=== PATIENT | male | born 1935 | race Two or more races ===

== ENCOUNTER 2023-05-21 08:13 | Day surgery (SDC) | payer OTHER, MEDICAID ==
[2023-05-19 11:56] LABS: Basophils # (auto) 0.1 10 ^3/uL (0-0.2); Eosinophils # (auto) 0.5 10 ^3/uL (0-0.8); Eosinophils % (auto) 10.2 % (0.0-7.0); Hematocrit 37.9 % (41.0-53.0); Hemoglobin 12.1 g/dL (13.5-17.5); Lymphocytes # (auto) 0.5 10 ^3/uL (0.4-5.4); Lymphocytes % (auto) 10.8 % (10.0-50.0); Mean Corpuscular Hemoglobin 30.3 pg (28.0-32.0); Mean Corpuscular Volume 94.5 fL (80.0-100.0); Monocytes # (auto) 0.6 10 ^3/uL (0-1.3); Monocytes % (auto) 12.4 % (0.0-12.0); Neutrophils # (auto) 3.3 10 ^3/uL (1.6-8.6); Neutrophils % (auto) 65.6 % (37.0-80.0); Red Blood Cells 4.01 10^6/uL (4.5-5.90); Red Cell Distribution Width 16.1 % (11.8-14.3); White Blood Cell 5.1 10^3/uL (4.4-10.8)
[2023-05-19 12:13] LABS: INR 1.08 (0.9-1.15); Partial Thromboplastin Time 32.8 SEC (24.5-34.5); Prothrombin Time 11.3 sec (9.3-11.8)
[2023-05-19 12:15] LABS: Urine Bacteria NONE SEEN /hpf (None Seen); Urine Blood Negative /uL (Negative); Urine Clarity Clear (Clear); Urine Color Colorless (Yellow); Urine Protein, UAD Negative (Negative); Urine Specific Gravity 1.012 (1.001-1.035); Urine Urobilinogen Normal (Negative); Urine WBC 1 /hpf (0 - 3); Urine pH 5.5 (5.0-8.0)
[2023-05-19 12:17] LABS: Alanine Aminotransferase 14 U/L (7-40); Alkaline Phosphatase 83 U/L (46-116); Anion Gap 4 (5-15); BUN/Creatinine Ratio 17.6 (10.0-20.0); Blood Urea Nitrogen 19 mg/dL (9-23); Calcium 9.4 mg/dL (8.7-10.4); Carbon Dioxide 31 mmol/L (20-30); Chloride 105 mmol/L (98-107); Glucose 94 mg/dL (74-106); Potassium 4.8 mmol/L (3.5-5.1); Sodium 140 mmol/L (136-145)
[2023-05-19 12:18] LABS: Aspartate Aminotransferase 12 U/L (13-40); Bilirubin, Total 0.5 mg/dL (0.2-1.0); Total Protein 6.8 g/dL (5.7-8.2)
[~2023-05-21] VITALS: Ht 180.3 cm; Wt 106.6 kg
[~2023-05-21 08:13] MED LIST: ASCO500T11 PO; ASPI81CH59 PO; CARV3.1240 PO; CHOL100047 PO; CLOT1CRE56 TOP; COEN200C11 PO; FER325T PO; FLUT1AER6 IN; FURO40TA4 PO; IPRA0.00 IN; MILK500C2 PO; OMEGCAP28 OR; PANT40TA2 PO; POTA1TAB61 PO; PRAV20TA3 PO; RIV15T PO
[2023-05-21] MEDS ORDERED: PHENYLEPHRINE HCL 10 MG/ML VL IV ONE (08:14)
[2023-05-21] MEDS ORDERED: ONDANSETRON HCL 4 MG/2 ML VIAL ONE (11:07)
[2023-05-21] MEDS ORDERED: LIDOCAINE 2% (LOCAL ANESTH.) PF 5ml SDV ONE (11:07)
[2023-05-21] MEDS ORDERED: PROPOFOL 10 MG/ML 20 ML IV ONE (11:07)
[2023-05-21] MEDS ORDERED: GLYCOPYRROLATE 0.2 MG/ML 1ML VIAL ONE (11:07)
[2023-05-21] MEDS ORDERED: fentaNYL CITRATE 100 MCG/2 ML VL ONE (11:08)
[2023-05-21] MEDS ORDERED: CIPROFLOXACIN 400MG/200ML 200 ML IV ONE (11:09)
[2023-05-21 13:58] VITALS: PULSE 79; RESP 20; O2SAT 96
[2023-05-21 14:05] VITALS: TEMP 97.2
[2023-05-21 14:15] VITALS: PULSE 80
[2023-05-21 15:05] VITALS: BP 135/73; PULSE 80; RESP 16; O2SAT 97
== END 2023-05-21 15:30 | disposition home or self-care (01) ==
LOC: SUR 08:13
PROVIDERS: ATTEND Urology
DX: N32.9 Bladder disorder, unspecified (principal); I11.0 Hypertensive heart disease with heart failure; I50.9 Heart failure, unspecified; J44.9 Chronic obstructive pulmonary disease, unspecified; E11.9 Type 2 diabetes mellitus without complications; Z79.899 Other long term (current) drug therapy; Z79.84 Long term (current) use of oral hypoglycemic drugs; Z98.890 Other specified postprocedural states
CPT/HCPCS: 36415; 52240; 80053; 81001; 82962; 85025; 85610; 85730; 87086; J0744; J2001; J2370; J2405; J2704; J3010

== ENCOUNTER 2024-10-01 18:34 | Inpatient (IN) | payer OTHER, MEDICAID ==
[~2024-10-01] VITALS: Ht 180.3 cm; Wt 104.5 kg
[~2024-10-01 18:34] MED LIST changes: -COEN200C11 PO; +COEN200C25 PO; +POTA-215 PO; -POTA1TAB61 PO
--- NOTE | 2024-10-01 19:31 | ED.PDOC ---
GI ASSESSMENT HPI Comments 88-year-old male who came to emergency room via EMS due to abdominal pain. States with the past 3 days, he has been having constant abdominal pain associated with nausea. Patient states he has been constipated, but had his last bowel movement yesterday. He denies any abdominal surgeries, denies any vomiting. Chief Complaint: Abdominal Pain Time Seen by MD: 19:31 Reviewed Notes: Nurses Notes Allergies: Coded Allergies: NO KNOWN ALLERGIES (Unverified , 05/19/23) Home Meds Reported Medications Ipratropium-Albuterol (Ipratropium [place]/Albut) 1 Francisco Francisco, 1 FRANCISCO IN BID, ML 05/19/23 Clotrimazole (Lotrimin) 1 Applic Ap, 1 APPLIC TOP PRN, APPLIC 05/19/23 Fluticasone-Salmeterol (Wixela Inhub 250-50 Mcg/Dose) 1 Aer Aer, 1 AER IN DAILY, AER 05/19/23 Ascorbic Acid (VITAMIN C TABLET) 500 Mg Tb, 1000 MG PO DAILY, TAB 05/19/23 Coenzyme Q10 (Coq10) 200 Mg Cap, 200 MG PO DAILY, CAP 05/19/23 Silybum Marianum (Milk Thistle) 500 Mg Cap, 1000 MG PO BID, CAP 05/19/23 Cholecalciferol (D3) 1,000 Unit Cap, 1000 UNIT PO DAILY, CAP 05/19/23 Furosemide (Furosemide) 40 Mg Tab, 40 MG PO DAILY, TAB 05/19/23 Potassium Chloride (Klor-Con M10) 10 Meq Tab, 10 MEQ PO DAILY, TAB 05/19/23 Pravastatin Sodium (PRAVACHOL TABLET) 20 Mg Tb, 40 MG PO DAILY, TAB 05/19/23 Pantoprazole Sodium Sesquihydr (Protonix) 40 Mg Tab, 40 MG PO DAILY, #30 TAB 05/19/23 Carvedilol (Carvedilol) 3.125 Mg Tab, 3.125 MG PO BID, TAB 05/19/23 Ferrous Sulfate (FERROUS SULFATE) 325 Mg Tb, 325 MG PO DAILY, TAB 05/19/23 Rivaroxaban (Xarelto Tablet) 15 Mg Tb, 15 MG PO DAILY, TAB 05/19/23 Aspirin (Aspirin Low Dose) 81 Mg Chw, 81 MG PO DAILY, TAB.CHEW 05/19/23 [place] 3 Fatty Acids-[place] 6 Fa (OMEGA 3-6-9 COMPLEX) Complex Cap, 1 OR BID, CAP 05/19/23 Information Source: Patient Mode of Arrival: EMS Timing: Days Duration: Since onset Prehospital treatment: None Quality: Aching Vomitus: None Stool: Impaction Severity: Moderate Recent: None Recent Hx of: None Pain Location: Epigastric Associated sign and symptoms: Nausea, Abdominal Pain Past Medical History PAST MEDICAL HISTORY: Denies Surgical History: Denies all surgeries Family History Family History: Reviewed,noncontributory to illness Social History Smoker: Non-Smoker Alcohol: Denies ETOH Use Drugs: Denies Drug Use Lives In: Home Constitutional: denies: chills, diaphoresis, fatigue, fever, malaise, sweats, weakness, others EENTM: denies: blurred vision, double vision, ear bleeding, ear discharge, ear drainage, ear pain, ear ringing, eye pain, eye redness, hearing loss, mouth pain, mouth swelling, nasal discharge, nose bleeding, nose congestion, nose pain, photophobia, tearing, throat pain, throat swelling, voice changes, others Respiratory: denies: cough, hemoptysis, orthopnea, SOB at rest, shortness of breath, SOB with excertion, stridor, wheezing, others Cardiovascular: denies: chest pain, dizzy spells, diaphoresis, Dyspnea on exertion, edema, irregular heart beat, left arm pain, lightheadedness, palpitations, PND, syncope, others Gastrointestinal: reports: abdominal pain, nausea; denies: abdomen distended, blood streaked bowels, constipated, diarrhea, dysphagia, difficulty swallowing, hematemesis, melena, poor appetite, poor fluid intake, rectal bleeding, rectal pain, vomiting, others Genitourinary: denies: burning, dysuria, flank pain, frequency, hematuria, incontinence, penile discharge, penile sore, pain, testicle pain, testicle swelling, urgency, others Neurological: denies: dizziness, fainting, headache, left sided numbness, left sided weakness, numbness, paresthesia, pre-existing deficit, right sided numbness, right sided weakness, seizure, speech problems, tingling, tremors, weakness, others Musculoskeletal: denies: back pain, gout, joint pain, joint swelling, muscle pain, muscle stiffness, neck pain, others Integumetry: denies: bruises, change in color, change in hair/nails, dryness, laceration, lesions, lumps, rash, wounds, others Allergic/Immunocompromised: denies: Difficulty Healing, Frequent Infections, Hives, Itching, others Hematologic/Lymphatic: denies: anemia, blood clots, easy bleeding, easy bruising, swollen glands, others Endocrine: denies: excessive hunger, excessive sweating, excessive thirst, excessive urination, flushing, intolerance to cold, intolerance to heat, unexplained weight gain, unexplained weight loss, others Psychiatric: denies: anxiety, bipolar disorder, depression, hopeless, panic disorder, schizophrenia, sleepless, suicidal, others Physical Exam General Appearance: No Apparent Distress, Normal HEENT: Normal ENT Inspection, Pharynx Normal, TMs Normal Neck: Full Range of Motion, Non-Tender, Normal, Normal Inspection Respiratory: Chest Non-Tender, Lungs Clear, No Accessory Muscle Use, No Respiratory Distress, Normal Breath Sounds Cardiovascular: No Edema, No JVD, No Murmur, No Gallop, Normal Peripheral Pulses, Regular Rate/Rhythm Breast Exam: Deferred Gastrointestinal: Epigastric, No Organomegaly, No Pulsatile Mass, Normal Bowel Sounds, Soft, Tenderness Genitalia: Deferred Pelvic: Deferred Rectal: Deferred Extremities: No calf tenderness, Normal capillary refill, Normal inspection, Normal range of motion, Non-tender, No pedal edema Musculoskeletal : Apperance: Normal Neurologic: Alert, pr manager II-XII nml as Tested, No Motor Deficits, Normal Affect, Normal Mood, No Sensory Deficits Cerebellar Function: Normal Reflexes: Normal Skin: Dry, Normal Color, Warm Lymphatic: No Adenopathy Was a procedure done? Was a procedure done?: No GI differential Dx Differential Diagnosis: Constipation, Diverticular disease, Gastritis/PUD, Gastroenteritis, Hepatitis, Pancreatitis, UTI, Urolithiasis X-Ray, Labs, Meds, VS Vital Signs Date Time Temp Pulse Resp B/P (MAP) Pulse Ox O2 Delivery O2 Flow Rate FiO2 10/01/24 21:41 62 16 98/50 (66) 95 10/01/24 21:40 62 16 98/50 10/01/24 21:02 64 16 109/53 10/01/24 20:59 64 16 96 Room Air* 0 21 10/01/24 20:59 64 16 109/53 (71) 96 10/01/24 18:41 97.7 94 20 162/110 (127) 94 Lab Test 10/01/24 19:04 Range/Units White Blood Count 7.7 4.4-10.8 10^3/uL Red Blood Count 4.37 L 4.5-5.90 10^6/uL Hemoglobin 14.4 13.5-17.5 g/dL Hematocrit 43.9 41.0-53.0 % Mean Corpuscular Volume 100.5 H 80.0-100.0 fL Mean Corpuscular Hemoglobin 33.0 H 28.0-32.0 pg Mean Corpuscular Hemoglobin Concent 32.9 32.0-36.0 g/dL Red Cell Distribution Width 14.7 H 11.8-14.3 % Platelet Count 223 140-450 10^3/uL Mean Platelet Volume 8.1 6.9-10.8 fL Neutrophils (%) (Auto) 90.1 H 37.0-80.0 % Lymphocytes (%) (Auto) 4.2 L 10.0-50.0 % Monocytes (%) (Auto) 3.6 0.0-12.0 % Eosinophils (%) (Auto) 1.6 0.0-7.0 % Basophils (%) (Auto) 0.5 0.0-2.0 % Neutrophils # (Auto) 7.0 1.6-8.6 10 ^3/uL Lymphocytes # (Auto) 0.3 L 0.4-5.4 10 ^3/uL Monocytes # (Auto) 0.3 0-1.3 10 ^3/uL Eosinophils # (Auto) 0.1 0-0.8 10 ^3/uL Basophils # (Auto) 0 0-0.2 10 ^3/uL Nucleated Red Blood Cells 0.0 % Sodium Level 137 136-145 mmol/L Potassium Level 5.1 3.5-5.1 mmol/L Chloride Level 102 98-107 mmol/L Carbon Dioxide Level 27 20-31 mmol/L Anion Gap 8 5-15 Blood Urea Nitrogen 25 H 9-23 mg/dL Creatinine 1.30 0.700-1.30 mg/dL Glomerular Filtration Rate Calc 54 >90 mL/min BUN/Creatinine Ratio 19.2 10.0-20.0 Serum Glucose 138 H 74-106 mg/dL Lactic Acid Level 1.0 0.4-2.0 mmol/L Calcium Level 9.4 8.7-10.4 mg/dL Total Bilirubin 1.1 H 0.2-1.0 mg/dL Aspartate Amino Transferase (AST) 143 H 13-40 U/L Alanine Aminotransferase (ALT) 98 H 7-40 U/L Alkaline Phosphatase 104 46-116 U/L Total Protein 6.9 5.7-8.2 g/dL Albumin 4.1 3.2-4.8 g/dL Lipase 492 H 12-53 U/L Current Medications Medications (Trade) Dose Ordered Sig/Ellie Route Start Time Stop Time Status Last Admin Morphine Sulfate 4 mg ONCE ONCE IV 10/01/24 20:30 10/01/24 20:31 DC 10/01/24 21:02 Ondansetron HCl (Zofran) 4 mg ONCE ONCE IV 10/01/24 20:30 10/01/24 20:31 DC 10/01/24 21:01 Time of 1ST Reevaluation: 19:29 Reevaluation 1ST: Unchanged Patient Education/Counseling: Diagnosis, Treatment Family Education/Counseling: No Family Present Departure 1 Departure Time of Disposition: 22:21 (Patient presented with abdominal pain that was concerning for possible appendicits, gastritis, cholecystitis, colitis, gastroenteritis, sbo, or orther possible surgical emergency. Data: 1. I ordered and reviewed the result of at least 3 labs including a CBC, BMP, and Urinalysis. 2. I independently interpreted the following tests: CT Abdoment and Pelvis is concerning for acute cholecystitis .Risk:This patient has a high risk of morbidity due to further diagnostic testing or treatment and may suffer from an acute abdominal process disorder. Workup reveals dilated CBD and elevated lipase gallstone pancreatitis and patient should be admitted for further workup. and possible expert consultation. ) Impression: Primary Impression: Acute pancreatitis Qualified Codes: K85.90 - Acute pancreatitis without necrosis or infection, unspecified Additional Impression: Cholelithiasis Qualified Codes: K80.21 - Calculus of gallbladder without cholecystitis with obstruction Disposition: ADMITTED INPATIENT Admit to: Med Surg Condition: Guarded Critical Care Note Critical Care Time?: Yes Critical care comment: Intractable abdominal pain Authorized and Performed by: Cristhian Gamboa MD Total critical care time: Approximately 39 minutes Due to a high probability of clinically significant, life threatening deterioration, the patient required my highest level of preparedness to intervene emergently and I personally spent this critical care time directly and personally managing the patient. This critical care time included obtaining a history; examining the patient; pulse oximetry; ordering and review of studies; arranging urgent treatment with development of a management plan; evaluation of patient's response to treatment; frequent reassessment; and, discussions with other providers. This critical care time was performed to assess and manage the high probability of imminent, life-threatening deterioration that could result in multi-organ failure. It was exclusive of separately billable procedures and treating other patients and teaching time. Please see my other sections and the rest of the note for further information on patient assessment and treatment. Stability Stability form required: No Heart Score Heart Score: Heart Score Response (Comments) Value History N/A 0 EKG N/A 0 Age N/A 0 Risk Factors N/A 0 Troponin N/A 0 Total 0 I personally scribed for CRISTHIAN GAMBOA MD ([facility]) on 10/01/24 at 19:31. Electronically submitted by Norberto Simmons ([facility]). CRISTHIAN GAMBOA MD Oct 01, 2024 19:31
[2024-10-01 19:34] LABS: Basophils # (auto) 0 10 ^3/uL (0-0.2); Basophils % (auto) 0.5 % (0.0-2.0); Eosinophils # (auto) 0.1 10 ^3/uL (0-0.8); Eosinophils % (auto) 1.6 % (0.0-7.0); Hematocrit 43.9 % (41.0-53.0); Hemoglobin 14.4 g/dL (13.5-17.5); Lymphocytes # (auto) 0.3 10 ^3/uL (0.4-5.4); Lymphocytes % (auto) 4.2 % (10.0-50.0); Mean Corpuscular Hgb Conc. 32.9 g/dL (32.0-36.0); Mean Corpuscular Volume 100.5 fL (80.0-100.0); Monocytes # (auto) 0.3 10 ^3/uL (0-1.3); Monocytes % (auto) 3.6 % (0.0-12.0); Neutrophils % (auto) 90.1 % (37.0-80.0); Platelet Count (auto) 223 10^3/uL (140-450); Red Blood Cells 4.37 10^6/uL (4.5-5.90); Red Cell Distribution Width 14.7 % (11.8-14.3); White Blood Cell 7.7 10^3/uL (4.4-10.8)
[2024-10-01 19:48] LABS: Albumin 4.1 g/dL (3.2-4.8); Alkaline Phosphatase 104 U/L (46-116); Anion Gap 8 (5-15); BUN/Creatinine Ratio 19.2 (10.0-20.0); Calcium 9.4 mg/dL (8.7-10.4); Carbon Dioxide 27 mmol/L (20-31); Chloride 102 mmol/L (98-107); Potassium 5.1 mmol/L (3.5-5.1); Sodium 137 mmol/L (136-145); Total Protein 6.9 g/dL (5.7-8.2)
[2024-10-01 19:49] LABS: Alanine Aminotransferase 98 U/L (7-40); Aspartate Aminotransferase 143 U/L (13-40); Bilirubin, Total 1.1 mg/dL (0.2-1.0); Blood Urea Nitrogen 25 mg/dL (9-23); Glucose 138 mg/dL (74-106)
--- NOTE | 2024-10-01 20:33 | DVH ---
EXAM: XY CHEST PORTABLE TECHNIQUE: Single frontal chest radiograph CLINICAL HISTORY: abdominal pain COMPARISON: None Findings/Impression: Frontal chest radiograph demonstrates no acute osseous or superficial soft tissue abnormalities. Left chest wall dual-chamber pacemaker. The trachea is midline. Cardiomegaly. No pneumothorax, pleural effusions, or consolidations.
[2024-10-01] MEDS: IOHEXOL 300 MG/ML 100ML BOTTLE IJ ONE (20:57)
[2024-10-01 20:59] VITALS: PULSE 64; RESP 16; O2SAT 96
--- NOTE | 2024-10-01 21:00 | DVH ---
Exam: CT CT AB PEL WITH IV CON ONLY History: abdomninal pain Comparison Study: None TECHNIQUE: A digital firebrick and refractory tile repairer image was obtained. During the uneventful, intravenous administration of c ontrast material, multislice data acquisition was obtained through the abdomen and pelvis. The data s et was subsequently reconstructed into axial images. Images reviewed on a wrist examination is an exa mination of axial and multiplanar reformations using a variety of window levels and settings. RADIATION DOSE: DLP 1328.83 mGy.cm; CTDI vol 20.74 mGy. Findings: Lungs: The lung bases are clear. Heart: No cardiomegaly or pericardial effusion. Liver: Mild intrahepatic biliary ductal dilatation. Gallbladder: Cholelithiasis with a distended gallbladder. Dilated common bile duct measuring 1.6 cm a t the pancreatic head. Spleen: Unremarkable Pancreas: Unremarkable Adrenals: Unremarkable Kidneys: Unremarkable GI tract: Moderate hiatal hernia. Diverticulosis without evidence of acute diverticulitis. : Unremarkable. Vasculature: Moderate aortoiliac atherosclerosis. Lymphadenopathy: Absent Peritoneum: No ascites Musculoskeletal: Unremarkable Soft tissues: Unremarkable Impression: 1. No acute abdominopelvic abnormalities. 2. Cholelithiasis with a distended gallbladder and dilated common bile duct. Correlate with an ultras ound or nuclear medicine hepatobiliary scan to further evaluate for acute cholecystitis. 3. Mild intrahepatic biliary ductal dilatation 4. Diverticulosis without evidence of acute diverticulitis.
[2024-10-01] MEDS: ONDANSETRON HCL 4 MG/2 ML VIAL IV ONE (21:01)
[2024-10-01] MEDS: MORPHINE SULFATE 4 MG/ML SYR/VIAL IV ONE (21:02)
[2024-10-01] MEDS: metroNIDAZOLE 500MG/100ML 100 ML IV ONE (23:19)
[2024-10-02 00:08] VITALS: PULSE 60; RESP 14; O2SAT 97
[2024-10-02] MEDS: ceFAZolin 2 GM/D5W50ml 50 ML IV ONE (00:19)
[2024-10-02] MEDS ORDERED: HYDROcodone-ACET 5/325MG TAB PO PRN (00:45)
[2024-10-02] MEDS ORDERED: DOCUSATE SOD 100 MG CAP PO PRN (00:45)
[2024-10-02] MEDS ORDERED: ONDANSETRON HCL 4 MG/2 ML VIAL IV PRN (00:45)
[2024-10-02] MEDS ORDERED: MORPHINE SULFATE INJ 2 MG/ml SYRG IV PRN ×2 (00:45→02:30)
[2024-10-02] MEDS ORDERED: ACETAMINOPHEN 325 MG TAB PO PRN (00:45)
[2024-10-02] MEDS: PANTOPRAZOLE 40 MG/10 ML VIAL INJ IV ONE (01:06)
[2024-10-02] MEDS: SODIUM CHLORIDE 0.9% 1,000 ML IV SCH (01:07)
--- NOTE | 2024-10-02 02:21 | DVHHP2 ---
History of Present Illness Reason for Visit: Acute pancreatitis History of Present Illness The patient is 88-year-old male with past medical history of AFib, CHF, DM, hyperlipidemia, liver cirrhosis, and anemia who presented to [facility] ED with complaint of abdominal pain. Patient reports symptoms has been ongoing for the past 3 days, constant abdominal pain, associated nausea, constipated, getting worse that prompted this visit. Patient was seen and evaluated in the ED, laboratory data shows WBC 7.7, platelets 223, sodium 137, potassium 5.1, BUN 25, creatinine 1.30, GFR 54, glucose 138, AST 143, ALT 98, lipase 492. Chest x-ray revealing left chest wall dual-chamber pacemaker, c ardiomegaly. Abdomen/pelvis CT revealing cholelithiasis with a distended gallbladder and dilated common bile ducts, correlate with an ultrasound or nuclear medicine hepatobiliary scan to further evaluate for acute cholecystitis, mild intrahepatic biliary ductal dilatation, diverticulosis without evidence of acute diverticulitis. Patient was started on IV antibiotic regimen Flagyl, please see medication orders section in the computer. On my assessment, patient denied chest pain, no headache, no dizziness, no shortness of breaths, no nausea, no vomiting, no fever, no chills. Patient was admitted for further evaluation and medical management. Past Medical History AFib, DM, hyperlipidemia, CHF, liver cirrhosis, anemia. Past Surgical History Pacemaker Family History Reviewed, noncontributory to the management of this case. Past Social History The patient lives at home, denies smoking, alcohol or illicit drugs abuse. Review of Systems Constitutional: Yes: Weakness; No: Fever, Chills, Sweats, Malaise, Other Eyes: No: Pain, Vision change, Conjunctivae inflammation, Eyelid inflammation, Other, Redness ENT: No: Ear pain, Ear discharge, Nose pain, Nose discharge, Nose congestion, Mouth pain, Mouth swelling, Throat pain, Throat swelling, Other Respiratory: No: Cough, Dry, Shortness of breath, SOB with excertion, Wheezing, Hemoptysis, Pleuritic Pain, Sputum, Wheezing, Other Cardiovascular: No: Chest Pain, Palpitations, Orthopnea, Paroxysmal Noc. Dyspnea, Edema, Lt Headedness, Other Gastrointestinal: Nausea, Abdominal Pain; No: Vomiting, Diarrhea, Constipation, Melena, Hematochezia, Other Genitourinary: No Dysuria, No Frequency, No Incontinence, No Hematuria, No Retention, No Other Musculoskeletal: No: other, neck pain, shoulder pain, arm pain, back pain, hand pain, leg pain, foot pain Skin: No: Rash, Lesions, Jaundice, Bruising, Other Neurological: No: Weakness, Numbness, Incoordination, Change in speech, Confusion, Seizures, Other Allergies: Coded Allergies: NO KNOWN ALLERGIES (Unverified , 05/19/23) Medications Current Medications Medications Dose Ordered Sig/Ellie Route Start Time Stop Time Status Last Admin Dose Admin Metronidazole 100 ml @ 100 mls/hr Q8HR IV 10/02/24 06:00 Pantoprazole Sodium 40 mg DAILY IV 10/02/24 10:00 Sodium Chloride 1,000 ml @ 60 mls/hr [id number] IV 10/02/24 00:45 10/02/24 01:07 60 MLS/HR Acetaminophen/ Hydrocodone Bitart 1 tab Q4HP PRN PO 10/02/24 00:45 Ondansetron HCl 4 mg Q4HP PRN IV 10/02/24 00:45 Docusate Sodium 100 mg BIDPRN PRN PO 10/02/24 00:45 Acetaminophen 650 mg Q6HP PRN PO 10/02/24 00:45 Morphine Sulfate 2 mg Q4HPRN PRN IV 10/02/24 00:45 Exam Vital Signs Vital Signs Date Time Temp Pulse Resp B/P (MAP) Pulse Ox O2 Delivery O2 Flow Rate FiO2 10/02/24 00:08 60 14 97 Room Air* 0 21 10/02/24 00:07 98.2 117/48 (71) 98.2 General Appearance: Alert, Oriented X3, Cooperative, No acute distress HEENT: Atraumatic, PERRLA, EOMI, Mucous membr. moist/pink Respiratory: Clear to auscultation, Normal air movement Cardiovascular: Regular rate, Normal S1, Normal S2, No murmurs Abdominal: Normal bowel sounds, Soft, No hepatospenomegaly, No masses, Other (Reports tenderness) Extremities: No clubbing, No cyanosis, No edema, Normal pulses, No tenderness/swelling Skin: No rashes, No breakdown, No significant lesion Neuro: Normal speech, Normal tone, Sensation intact, Cranial nerves 3-12 NL, Reflexes 2+, Other (Generalized weakness) Psych/Mental Status: Mental status NL, Mood NL Labs/Xrays Labs Test 10/01/24 19:04 Range/Units White Blood Count 7.7 4.4-10.8 10^3/uL Red Blood Count 4.37 L 4.5-5.90 10^6/uL Hemoglobin 14.4 13.5-17.5 g/dL Hematocrit 43.9 41.0-53.0 % Mean Corpuscular Volume 100.5 H 80.0-100.0 fL Mean Corpuscular Hemoglobin 33.0 H 28.0-32.0 pg Mean Corpuscular Hemoglobin Concent 32.9 32.0-36.0 g/dL Red Cell Distribution Width 14.7 H 11.8-14.3 % Platelet Count 223 140-450 10^3/uL Mean Platelet Volume 8.1 6.9-10.8 fL Neutrophils (%) (Auto) 90.1 H 37.0-80.0 % Lymphocytes (%) (Auto) 4.2 L 10.0-50.0 % Monocytes (%) (Auto) 3.6 0.0-12.0 % Eosinophils (%) (Auto) 1.6 0.0-7.0 % Basophils (%) (Auto) 0.5 0.0-2.0 % Neutrophils # (Auto) 7.0 1.6-8.6 10 ^3/uL Lymphocytes # (Auto) 0.3 L 0.4-5.4 10 ^3/uL Monocytes # (Auto) 0.3 0-1.3 10 ^3/uL Eosinophils # (Auto) 0.1 0-0.8 10 ^3/uL Basophils # (Auto) 0 0-0.2 10 ^3/uL Nucleated Red Blood Cells 0.0 % Sodium Level 137 136-145 mmol/L Potassium Level 5.1 3.5-5.1 mmol/L Chloride Level 102 98-107 mmol/L Carbon Dioxide Level 27 20-31 mmol/L Anion Gap 8 5-15 Blood Urea Nitrogen 25 H 9-23 mg/dL Creatinine 1.30 0.700-1.30 mg/dL Glomerular Filtration Rate Calc 54 >90 mL/min BUN/Creatinine Ratio 19.2 10.0-20.0 Serum Glucose 138 H 74-106 mg/dL Lactic Acid Level 1.0 0.4-2.0 mmol/L Calcium Level 9.4 8.7-10.4 mg/dL Total Bilirubin 1.1 H 0.2-1.0 mg/dL Aspartate Amino Transferase (AST) 143 H 13-40 U/L Alanine Aminotransferase (ALT) 98 H 7-40 U/L Alkaline Phosphatase 104 46-116 U/L Total Protein 6.9 5.7-8.2 g/dL Albumin 4.1 3.2-4.8 g/dL Lipase 492 H 12-53 U/L PATIENT: DIXIE CARRIZALES ACCT: [id number] UNIT: [id number] : 1935 LOC: ER ROOM / BED: / AGE / SEX: 88 / M ADM STATUS: REG ER SERVICE 46 ORDERING PHYSICIAN: CRISTHIAN CEJA MD PROCEDURE(s): ABPLIV - CT AB PEL WITH IV CON ONLY REASON: abdomninal pain ORDER NUMBER(s): [id number], ACCESSION NUMBER(s): [id number] Exam: CT CT AB PEL WITH IV CON ONLY History: abdomninal pain Comparison Study: None TECHNIQUE: A digital quality project manager image was obtained. During the uneventful, intravenous administration of contrast material, multislice data acquisition was obtained through the abdomen and pelvis. The data set was subsequently reconstructed into axial images. Images reviewed on a wrist examination is an examination of axial and multiplanar reformations using a variety of window levels and settings. RADIATION DOSE: DLP 1328.83 mGy.cm; CTDI vol 20.74 mGy. Findings: Lungs: The lung bases are clear. Heart: No cardiomegaly or pericardial effusion. Liver: Mild intrahepatic biliary ductal dilatation. Gallbladder: Cholelithiasis with a distended gallbladder. Dilated common bile duct measuring 1.6 cm at the pancreatic head. Spleen: Unremarkable Pancreas: Unremarkable Adrenals: Unremarkable Kidneys: Unremarkable GI tract: Moderate hiatal hernia. Diverticulosis without evidence of acute diverticulitis. : Unremarkable. Vasculature: Moderate aortoiliac atherosclerosis. Lymphadenopathy: Absent Peritoneum: No ascites Musculoskeletal: Unremarkable Soft tissues: Unremarkable Impression: 1. No acute abdominopelvic abnormalities. 2. Cholelithiasis with a distended gallbladder and dilated common bile duct. Correlate with an ultrasound or nuclear medicine hepatobiliary scan to further evaluate for acute cholecystitis. 3. Mild intrahepatic biliary ductal dilatation 4. Diverticulosis without evidence of acute diverticulitis. ORDERING PHYSICIAN: CRISTHIAN CEJA MD PROCEDURE(s): CXRP - CHEST PORTABLE REASON: abdominal pain ORDER NUMBER(s): [id number], ACCESSION NUMBER(s): [id number] EXAM: XY CHEST PORTABLE TECHNIQUE: Single frontal chest radiograph CLINICAL HISTORY: abdominal pain COMPARISON: None Findings/Impression: Frontal chest radiograph demonstrates no acute osseous or superficial soft tissue abnormalities. Left chest wall dual-chamber pacemaker. The trachea is midline. Cardiomegaly. No pneumothorax, pleural effusions, or consolidations. Assessment/Plan Assessment/Plan Acute pancreatitis Elevated liver enzymes Acute pancreatitis without necrosis or infection, unspecified Cholelithiasis Acute abdominal pain Calculus of gallbladder without cholecystitis with obstruction Plan 1. Admit to Med-Surg unit 2. Breathing treatment 3. Pain control management 4. IV antibiotic management 5. Management of fluids and electrolytes 6. Consultation for hospitalist 7. Diagnostic test abdomen/pelvis CT 8. DVT prophylaxis on SCDs 9. Repeat labs CBC, CMP in a.m. 10. Continue with current medical management 11. Treatment plan discussed with patient and RN. Patient verbalized understanding. Plan discussed with: Patient, Other (RN) My Orders Orders - TOMAS MARTE DNP Procedure Category Date Status Time Complete Blood Count LAB 10/02/24 Logged 04:00 Comprehensive LAB 10/02/24 Logged Metabolic Panel 04:00 Metronidazole PHA 10/02/24 In Process 500mg/100ml (Flagyl 06:00 Pantoprazole PHA 10/02/24 In Process (Protonix) 10:00 * Gi Dvh Watch Commander CONS 10/02/24 Transmitted 00:41 Allergies LYNDSAY 10/02/24 In Process 00:41 Code Status CODE 10/02/24 Transmitted 00:41 Sodium Chloride 0.9% PHA 10/02/24 In Process 00:45 Oxygen Per Hour RT 10/02/24 Transmitted 00:41 Hydrocodone-Acet PHA 10/02/24 In Process 5/325mg Tab ([place] 00:45 Ondansetron Hcl PHA 10/02/24 In Process (Zofran) 00:45 Docusate Sodium PHA 10/02/24 In Process Capsule (Colace 00:45 Fall Risk Precautions LYNDSAY 10/02/[address] 00:41 Complete Blood Count LAB 10/03/24 Verified 04:00 Comprehensive LAB 10/03/24 Verified Metabolic Panel 04:00 Condition: Serious LYNDSAY 10/02/24 In Process 00:41 Acetaminophen Tablet PHA 10/02/24 In Process (Tylenol Tablet) 00:45 Clear Liq Diet DIET 10/02/24 Transmitted Breakfast Bedrest With Bathroom LYNDSAY 10/02/24 In Process Privileg 00:41 Morphine Sulfate PHA 10/02/24 In Process Injection 00:45 Sequential LYNDSAY 10/02/24 In Process Compression Device Admit ADMIT 10/02/24 Verified 02:20 Nitroglycerin [facility] 10/02/24 Verified Sublingual (Ntrostat 02:30 Morphine Sulfate PHA 10/02/24 Verified Injection 02:30 Notify Md Of Changes [facility] 10/02/24 Verified From Base 02:20 Ornamental Bronze Worker For [facility] 10/02/24 Verified 24 Hours 02:20 Emergency Dysrhythmia [facility] 10/02/24 Verified Protocol 02:20 Oxygen By Nasal RT 10/02/24 Verified Cannula 02:20 Problem List: (1) Acute pancreatitis (2) Elevated liver enzymes (3) Calculus of gallbladder without cholecystitis with obstruction (4) Cholelithiasis (5) Acute abdominal pain (6) Acute pancreatitis without necrosis or infection, unspecified Date of Service: Oct 02, 2024 Billing Provider: TOMAS MARTE DNP Common Visit Codes: [id number]-[id number] INP/OBS CARE (HIGH) TOMAS MARTE DNP Oct 02, 2024 02:21
[2024-10-02] MEDS ORDERED: NITROGLYCERIN 0.4 MG SL TAB SL PRN (02:30)
[2024-10-02] MEDS ORDERED: DEXTROSE (50%) 50ML SYRG IV PRN (03:30)
[2024-10-02] MEDS ORDERED: IPRATROPIUM BROM 0.5 MG/2.5ML INH SOL NEB PRN (03:30)
[2024-10-02 03:37] VITALS: BP 104/50; PULSE 60; RESP 18; TEMP 98.1; O2SAT 97
[2024-10-02 05:53] LABS: Basophils # (auto) 0.1 10 ^3/uL (0-0.2); Basophils % (auto) 0.4 % (0.0-2.0); Eosinophils # (auto) 0 10 ^3/uL (0-0.8); Eosinophils % (auto) 0.1 % (0.0-7.0); Hematocrit 42.7 % (41.0-53.0); Hemoglobin 13.8 g/dL (13.5-17.5); Lymphocytes # (auto) 0.2 10 ^3/uL (0.4-5.4); Mean Corpuscular Hemoglobin 32.6 pg (28.0-32.0); Mean Corpuscular Hgb Conc. 32.3 g/dL (32.0-36.0); Mean Corpuscular Volume 100.9 fL (80.0-100.0); Monocytes # (auto) 1.1 10 ^3/uL (0-1.3); Monocytes % (auto) 6.7 % (0.0-12.0); Neutrophils # (auto) 14.8 10 ^3/uL (1.6-8.6); Neutrophils % (auto) 91.8 % (37.0-80.0); Platelet Count (auto) 214 10^3/uL (140-450); Red Blood Cells 4.23 10^6/uL (4.5-5.90); Red Cell Distribution Width 14.8 % (11.8-14.3); White Blood Cell 16.1 10^3/uL (4.4-10.8)
[2024-10-02] MEDS: metroNIDAZOLE 500MG/100ML 100 ML IV SCH (06:15)
[2024-10-02 06:18] LABS: Albumin 3.7 g/dL (3.2-4.8); Anion Gap 7 (5-15); Calcium 9.1 mg/dL (8.7-10.4); Carbon Dioxide 29 mmol/L (20-31); Chloride 103 mmol/L (98-107); Potassium 5.1 mmol/L (3.5-5.1); Sodium 139 mmol/L (136-145); Total Protein 6.2 g/dL (5.7-8.2)
[2024-10-02 06:20] LABS: Alanine Aminotransferase 301 U/L (7-40); Alkaline Phosphatase 118 U/L (46-116); Aspartate Aminotransferase 428 U/L (13-40); Bilirubin, Total 2.3 mg/dL (0.2-1.0); Blood Urea Nitrogen 27 mg/dL (9-23); Glucose 124 mg/dL (74-106)
[2024-10-02 06:26] LABS: Urine Bacteria FEW /hpf (None Seen); Urine Blood Negative /uL (Negative); Urine Clarity Clear (Clear); Urine Color Yellow (Yellow); Urine Hyaline Cast MOD /lpf (0 - 2); Urine Protein, UAD TRACE (Negative); Urine Specific Gravity > 1.035 (1.001-1.035); Urine Squamous Epithelial Cell FEW /hpf (<5); Urine Urobilinogen 2 mg/dL (Negative); Urine WBC 1 /HPF (0-3)
[2024-10-02] MEDS: ACCU-CHEK COMFORT CURVE STRIP VI SCH (06:45)
[2024-10-02] MEDS: InsuLIN REG 1unit/0.01ml Soln (100units/ml) SC SCH (06:45)
--- NOTE | 2024-10-02 08:09 | DVH ---
EXAM: US GALLBLADDER HISTORY: cholecystitis COMPARISON: CT scan of the abdomen and pelvis dated 10/01/2024. TECHNIQUE: Right upper quadrant ultrasound was performed. FINDINGS: Gallstones are identified in the dependent portion of the gallbladder, without gallbladder wall thick ening or pericholecystic free fluid. The gallbladder is distended up to 12 cm length x 4 cm width. Th e patient was not tender to transducer pressure over the gallbladder. No intrahepatic biliary ductal dilatation or liver mass. The liver measures 16.9 cm longitudinal and is difficult to penetrate sono graphically. There is hepatopetal portal venous color Doppler flow. The common duct measures 13 mm d iameter. The pancreas,IVC, and abdominal aorta were not well visualized sonographically. The righ t kidney measures 10.3 cm in length and is normal in appearance. IMPRESSION: 1. Possible hepatic steatosis. 2. Cholelithiasis with gallbladder hydrops which may indicate acute cholecystitis. 3. Ectasia of the common bile duct measuring 13 mm, without sonographic evidence of choledocholithias is.
[2024-10-02 09:07] LABS: INR 0.97 (0.9-1.15); Partial Thromboplastin Time 27.1 SEC (24.5-34.5); Prothrombin Time 10.3 sec (9.3-11.8)
[2024-10-02 09:30] VITALS: PULSE 60; RESP 12; O2SAT 95
[2024-10-02] MEDS ORDERED: PANTOPRAZOLE 40 MG/10 ML VIAL INJ IV SCH (10:00)
[2024-10-02] MEDS: SPIRONOLACTONE 25 MG TAB PO SCH (10:00)
[2024-10-02] MEDS: CARVEDILOL 3.125 MG TAB PO SCH (10:00)
[2024-10-02 10:08] VITALS: O2SAT 96
--- NOTE | 2024-10-02 11:09 | DVHPNRES ---
Progress Note Objective vital signs Vital Sign Date Time Temp Pulse Resp B/P (MAP) Pulse Ox O2 Delivery O2 Flow Rate FiO2 10/02/24 10:08 96 Room Air 0.0 10/02/24 10:08 21 10/02/24 10:00 61 16 82/46 (58) 10/02/24 07:53 97.9 97.9 Total Intake and Output 10/01/24 10/01/24 10/02/24 15:00 23:00 07:00 Intake Total 550 ml Balance 550 ml medications Current Medications Medications Dose Ordered Sig/Ellie Route Start Time Stop Time Status Last Admin Dose Admin Acetaminophen/ Hydrocodone Bitart 1 tab Q4HP PRN PO 10/02/24 00:45 Ondansetron HCl 4 mg Q4HP PRN IV 10/02/24 00:45 Docusate Sodium 100 mg BIDPRN PRN PO 10/02/24 00:45 Acetaminophen 650 mg Q6HP PRN PO 10/02/24 00:45 Morphine Sulfate 2 mg Q4HPRN PRN IV 10/02/24 00:45 Nitroglycerin 0.4 mg Q5MINP PRN SL 10/02/24 02:30 Morphine Sulfate 2 mg Q30M PRN IV 10/02/24 02:30 Carvedilol 3.125 mg Q12HR PO 10/02/24 10:00 Aspirin 81 mg DAILY PO 10/02/24 10:00 Atorvastatin Calcium 10 mg HS PO 10/02/24 22:00 Pantoprazole Sodium 40 mg DAILY IV 10/02/24 10:00 Ipratropium [place] 0.5 mg Q4HPRN PRN NEB 10/02/24 03:30 Spironolactone 25 mg DAILY PO 10/02/24 10:00 Rivaroxaban 20 mg QPM PO 10/02/24 18:00 Diagnostic Test (Pha) 1 strip ACHS 10/02/24 07:00 10/02/24 06:45 1 STRIP Insulin Human Regular ACHS SC 10/02/24 07:00 Dextrose 50 ml UD PRN IV 10/02/24 03:30 Piperacillin Sod/ Tazobactam Sod 100 ml @ 25 mls/hr Q8HR IV 10/02/24 14:00 laboratory and microbiology Laboratory Tests 10/02/24 05:19 Test 10/02/24 05:19 Range/Units Serum Glucose 124 H 74-106 mg/dL Microbiology Date/Time Source Procedure Growth Status 10/01/24 19:04 Blood Blood Culture - Preliminary Resulted My Orders My Orders Orders - ROB CHRISTOPHER Procedure Category Date Status Time Vitamin B12 LAB 10/02/24 In Process 08:20 Vitamin D, 25-Hydroxy LAB 10/02/24 In Process 08:20 Nm Hida Scan NM 10/02/24 Logged 08:20 Sodium Chloride 0.9% PHA 10/02/24 Logged 11:15 ROB CHRISTOPHER Oct 02, 2024 11:09
[2024-10-02] MEDS: SODIUM CHLORIDE 0.9% 250 ML IV ONE (11:30)
--- NOTE | 2024-10-02 12:05 | DVHINCON2 ---
Date of service: Oct 02, 2024 Allergies: Coded Allergies: NO KNOWN ALLERGIES (Unverified , 05/19/23) Home Meds Reported Medications Ipratropium-Albuterol (Ipratropium [place]/Albut) 1 Francisco Francisco, 1 FRANCISCO IN BID, ML 05/19/23 Clotrimazole (Lotrimin) 1 Applic Ap, 1 APPLIC TOP PRN, APPLIC 05/19/23 Fluticasone-Salmeterol ([place]ela Inhub 250-50 Mcg/Dose) 1 Aer Aer, 1 AER IN DAILY, AER 05/19/23 Ascorbic Acid (VITAMIN C TABLET) 500 Mg Tb, 1000 MG PO DAILY, TAB 05/19/23 Coenzyme Q10 (Coq10) 200 Mg Cap, 200 MG PO DAILY, CAP 05/19/23 Silybum [place] (Milk Thistle) 500 Mg Cap, 1000 MG PO BID, CAP 05/19/23 Cholecalciferol (D3) 1,000 Unit Cap, 1000 UNIT PO DAILY, CAP 05/19/23 Furosemide (Furosemide) 40 Mg Tab, 40 MG PO DAILY, TAB 05/19/23 Potassium Chloride (Klor-Con M10) 10 Meq Tab, 10 MEQ PO DAILY, TAB 05/19/23 Pravastatin Sodium (PRAVACHOL TABLET) 20 Mg Tb, 40 MG PO DAILY, TAB 05/19/23 Pantoprazole Sodium Sesquihydr (Protonix) 40 Mg Tab, 40 MG PO DAILY, #30 TAB 05/19/23 Carvedilol (Carvedilol) 3.125 Mg Tab, 3.125 MG PO BID, TAB 05/19/23 Ferrous Sulfate (FERROUS SULFATE) 325 Mg Tb, 325 MG PO DAILY, TAB 05/19/23 Rivaroxaban (Xarelto Tablet) 15 Mg Tb, 15 MG PO DAILY, TAB 05/19/23 Aspirin (Aspirin Low Dose) 81 Mg Chw, 81 MG PO DAILY, TAB.CHEW 05/19/23 [place] 3 Fatty Acids-[place] 6 Fa (OMEGA 3-6-9 COMPLEX) Complex Cap, 1 OR BID, CAP 05/19/23 Current Medications Current Medications Medications (Trade) Dose Ordered Sig/Ellie Route PRN Reason Start Time Stop Time Status Last Admin Metronidazole 100 ml @ 100 mls/hr Q8HR IV 10/02/24 06:00 10/02/24 06:52 DC 10/02/24 06:15 Pantoprazole Sodium (Protonix) 40 mg DAILY IV 10/02/24 10:00 10/02/24 03:37 DC Sodium Chloride 1,000 ml @ 60 mls/hr [id number] IV 10/02/24 00:45 10/02/24 11:08 DC 10/02/24 01:07 Acetaminophen/ Hydrocodone Bitart ([place] 5/325MG Tab) 1 tab Q4HP PRN PO MODERATE PAIN (4-6 PAIN SCALE) 10/02/24 00:45 Ondansetron HCl (Zofran) 4 mg Q4HP PRN IV NAUSEA / VOMITING 10/02/24 00:45 Docusate Sodium (Colace Capsule) 100 mg BIDPRN PRN PO FOR CONSTIPATION 10/02/24 00:45 Acetaminophen (Tylenol Tablet) 650 mg Q6HP PRN PO PAIN SCALE 1-3 OR TEMP>100.4 10/02/24 00:45 Morphine Sulfate 2 mg Q4HPRN PRN IV SEVERE PAIN (7-10 PAIN SCALE) 10/02/24 00:45 Nitroglycerin (Ntrostat Sublingual) 0.4 mg Q5MINP PRN SL FOR CHEST PAIN 10/02/24 02:30 Morphine Sulfate 2 mg Q30M PRN IV FOR CHEST PAIN 10/02/24 02:30 Carvedilol (Coreg Tablet) 3.125 mg Q12HR PO 10/02/24 10:00 Aspirin 81 mg DAILY PO 10/02/24 10:00 Atorvastatin Calcium (Lipitor) 10 mg HS PO 10/02/24 22:00 Pantoprazole Sodium (Protonix) 40 mg DAILY IV 10/02/24 10:00 Ipratropium [place] (Atrovent Medneb) 0.5 mg Q4HPRN PRN NEB SHORTNESS OF BREATH 10/02/24 03:30 Spironolactone (Aldactone) 25 mg DAILY PO 10/02/24 10:00 Rivaroxaban (Xarelto Tablet) 20 mg QPM PO 10/02/24 18:00 Diagnostic Test (Pha) (Accu-Chek Comfort Curve T) 1 strip ACHS 10/02/24 07:00 10/02/24 06:45 Insulin Human Regular (InsuLIN R) ACHS SC 10/02/24 07:00 Dextrose 50 ml UD PRN IV Blood Sugar LESS THAN 60 10/02/24 03:30 Piperacillin Sod/ Tazobactam Sod 100 ml @ 25 mls/hr Q8HR IV 10/02/24 14:00 Vital Signs Vital Signs Date Time Temp Pulse Resp B/P (MAP) Pulse Ox O2 Delivery O2 Flow Rate FiO2 10/02/24 10:08 96 Room Air 0.0 10/02/24 10:08 21 10/02/24 10:00 61 16 82/46 (58) 10/02/24 07:53 97.9 97.9 Labs/Diagnostic Data Labs Test 10/02/24 05:38 10/02/24 05:19 10/01/24 19:04 Range/Units Urine Color Yellow Yellow Urine Clarity Clear Clear Urine pH 5.0 5.0-9.0 Urine Specific [place] > 1.035 H 1.001-1.035 Urine Protein Trace H Negative Urine Ketones Negative Negative Urine Blood Negative Negative /uL Urine Nitrite Negative Negative Urine Bilirubin Negative Negative Urine Urobilinogen 2 H Negative mg/dL Urine Leukocyte Esterase Negative Negative /uL Urine RBC 4 0 - 3 /hpf Urine Microscopic WBC 1 0-3 /HPF Urine Squamous Epithelial Cells Few <5 /hpf Urine Bacteria Few H None Seen /hpf Urine Hyaline Casts Mod 0 - 2 /lpf Urine Glucose 3+ H Normal mg/dL White Blood Count 16.1 #H 4.4-10.8 10^3/uL Red Blood Count 4.23 L 4.5-5.90 10^6/uL Hemoglobin 13.8 13.5-17.5 g/dL Hematocrit 42.7 41.0-53.0 % Mean Corpuscular Volume 100.9 H 80.0-100.0 fL Mean Corpuscular Hemoglobin 32.6 H 28.0-32.0 pg Mean Corpuscular Hemoglobin Concent 32.3 32.0-36.0 g/dL Red Cell Distribution Width 14.8 H 11.8-14.3 % Platelet Count 214 140-450 10^3/uL Mean Platelet Volume 8.3 6.9-10.8 fL Neutrophils (%) (Auto) 91.8 H 37.0-80.0 % Lymphocytes (%) (Auto) 1.0 L 10.0-50.0 % Monocytes (%) (Auto) 6.7 0.0-12.0 % Eosinophils (%) (Auto) 0.1 0.0-7.0 % Basophils (%) (Auto) 0.4 0.0-2.0 % Neutrophils # (Auto) 14.8 H 1.6-8.6 10 ^3/uL Lymphocytes # (Auto) 0.2 L 0.4-5.4 10 ^3/uL Monocytes # (Auto) 1.1 0-1.3 10 ^3/uL Eosinophils # (Auto) 0 0-0.8 10 ^3/uL Basophils # (Auto) 0.1 0-0.2 10 ^3/uL Nucleated Red Blood Cells 0.0 % Prothrombin Time 10.3 9.3-11.8 sec Prothrombin Time INR 0.97 0.9-1.15 Activated Partial Thromboplast Time 27.1 24.5-34.5 SEC Sodium Level 139 136-145 mmol/L Potassium Level 5.1 3.5-5.1 mmol/L Chloride Level 103 98-107 mmol/L Carbon Dioxide Level 29 20-31 mmol/L Anion Gap 7 5-15 Blood Urea Nitrogen 27 H 9-23 mg/dL Creatinine 1.35 H 0.700-1.30 mg/dL Glomerular Filtration Rate Calc 51 >90 mL/min BUN/Creatinine Ratio 20.0 10.0-20.0 Serum Glucose 124 H 74-106 mg/dL Calcium Level 9.1 8.7-10.4 mg/dL Magnesium Level 3.0 H 1.6-2.6 mg/dL Total Bilirubin 2.3 H 0.2-1.0 mg/dL Aspartate Amino Transferase (AST) 428 H 13-40 U/L Alanine Aminotransferase (ALT) 301 H 7-40 U/L Alkaline Phosphatase 118 H 46-116 U/L B-Type Natriuretic Peptide 291.44 0-100 pg/mL Total Protein 6.2 5.7-8.2 g/dL Albumin 3.7 3.2-4.8 g/dL Thyroid Stimulating Hormone (TSH) 0.94 0.55-4.78 uIU/mL Lactic Acid Level 1.0 0.4-2.0 mmol/L Lipase 492 H 12-53 U/L Microbiology Date/Time Source Procedure Growth Status 10/01/24 19:04 Blood Blood Culture - Preliminary Resulted Assessment [id number] AC PANCREATITIS R/O AC CHOLECYSTITIS R/O CBD STONE CHOLANGITIS WBC TRENDING UP LFT ELEVATED AND TRENDING UP HIGH RISK FOR SURGERY TRANSFER TO HIGHER LEVEL OF CARE ERCP MIGHT BE INDICATED BASED ON ONGOING EVAL NURSE AT BEDSIDE TALKED TO FAMILY ON HE PHONE Plan discussed with: Patient AMANDA MARTINEZ MD Oct 02, 2024 12:05
[2024-10-02] MEDS: PANTOPRAZOLE 40 MG/10 ML VIAL INJ IV SCH (12:16)
[2024-10-02] MEDS: ASPirin 81 mg TAB PO SCH (12:16)
--- NOTE | 2024-10-02 12:56 | DVHPNRES ---
Progress Note Date Seen: Oct 02, 2024 Resident Creating Document: ROB CHRISTOPHER RESIDENT Medical Necessity Reason Pt with a Central, PICC or Fol: No Subjective Review of Systems Mr. 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 Initially, he reports that the pain was crampy, intermittent but now it is continuous with think it is the worst pain he has ever had in his life. Associated features include nausea, no vomiting, denies fever or chills. Patient presented to the ER with low blood pressure 91/51 mmHg, pulse in 60s beats per minute, ultrasound completed, showed CBD 13 mm. Hepatic steatosis include cholelithiasis, could not rule out choledocholithiasis. Labs showed AST greater than ALT, hyperbilirubinemia, lipase elevated at 4 9 2, WBC trended up from 7 to 16. Surgeon consulted, high likelihood that the patient has choledocholithiasis given the elevated lipase, recommended transferring the patient to higher level of care for ERCP stat. senior professional services consultant was consulted for HL OC. PMH: See above PSH: See above Social history, lives independently, denies smoking/illicit drug use. Drinks 3 oz of alcohol daily Patient seen and examined at the bedside. Negative Duron sign, abdominal tenderness. hot room attendant reviewed, shows sinus rhythm. Objective vital signs Vital Sign Date Time Temp Pulse Resp B/P (MAP) Pulse Ox O2 Delivery O2 Flow Rate FiO2 10/02/24 10:08 96 Room Air 0.0 10/02/24 10:08 21 10/02/24 10:00 61 16 82/46 (58) 10/02/24 07:53 97.9 97.9 Total Intake and Output 10/01/24 10/01/24 10/02/24 15:00 23:00 07:00 Intake Total 550 ml Balance 550 ml medications Current Medications Medications Dose Ordered Sig/Ellie Route Start Time Stop Time Status Last Admin Dose Admin Acetaminophen/ Hydrocodone Bitart 1 tab Q4HP PRN PO 10/02/24 00:45 Ondansetron HCl 4 mg Q4HP PRN IV 10/02/24 00:45 Docusate Sodium 100 mg BIDPRN PRN PO 10/02/24 00:45 Acetaminophen 650 mg Q6HP PRN PO 10/02/24 00:45 Morphine Sulfate 2 mg Q4HPRN PRN IV 10/02/24 00:45 Nitroglycerin 0.4 mg Q5MINP PRN SL 10/02/24 02:30 Morphine Sulfate 2 mg Q30M PRN IV 10/02/24 02:30 Carvedilol 3.125 mg Q12HR PO 10/02/24 10:00 Aspirin 81 mg DAILY PO 10/02/24 10:00 10/02/24 12:16 81 MG Atorvastatin Calcium 10 mg HS PO 10/02/24 22:00 Pantoprazole Sodium 40 mg DAILY IV 10/02/24 10:00 10/02/24 12:16 40 MG Ipratropium [place] 0.5 mg Q4HPRN PRN NEB 10/02/24 03:30 Spironolactone 25 mg DAILY PO 10/02/24 10:00 Rivaroxaban 20 mg QPM PO 10/02/24 18:00 Diagnostic Test (Pha) 1 strip ACHS 10/02/24 07:00 10/02/24 12:10 1 STRIP Insulin Human Regular ACHS SC 10/02/24 07:00 10/02/24 12:17 2 UNITS Dextrose 50 ml UD PRN IV 10/02/24 03:30 Piperacillin Sod/ Tazobactam Sod 100 ml @ 25 mls/hr Q8HR IV 10/02/24 14:00 Examination Patient lying in bed, in no acute distress General: Well-built, afebrile, palor, mucosae are moist Cardiovascular: Regular S1 and S2. No murmurs, gallops or rubs. No JVD elevation. 1+ pedal edema Respiratory: Bilateral basilar crackles heard on auscultation. Weaned off oxygen. Abdomen: Soft, nontender, nondistended, normoactive bowel sounds, no rebound tenderness, no organomegaly, no masses Genitourinary: Deferred MSK/skin: Mobilizes 4 limbs. Skin is dry and warm Neurological: No motor, no sensitive deficits, normal speech. Pupils are isocoric and reactive. Psych/Mental Status: A/Ox3 laboratory and microbiology Laboratory Tests 10/02/24 05:19 Test 10/02/24 05:19 Range/Units Serum Glucose 124 H 74-106 mg/dL Microbiology Date/Time Source Procedure Growth Status 10/01/24 19:04 Blood Blood Culture - Preliminary Resulted Labs and/or images reviewed: Labs reviewed by me, Image(s) reviewed by me Problem List/Assessment/Plan Problem List/Assessment/Plan Sepsis secondary to possible choledocholithiasis ? Cholangitis Acute pancreatitis Acute cholecystitis Hypotension secondary to above Prelim blood culture showing Gram-negative rods Gallbladder ultrasound shows possible hepatic steatosis. Cholelithiasis with gallbladder hydrops which may indicate acute cholecystitis. Ectasia of the CBD measuring [address] abdomen shows no acute abnormalities. Cholelithiasis with a distended gallbladder and dilated CBD. HIDA scan ordered Surgeon consulted-recommended high level of care for ERCP. senior professional services consultant consulted. Cardiology consulted for clearance for surgery Consider radiologist consult for cholecystectomy tube placement if the patient stays in this facility IV Zosyn starting 10/02 Acute on chronic CHF exacerbation Paroxysmal atrial fibrillation-rate controlled Holding home medication spironolactone, Coreg given the hypotension Continue Xarelto 20 mg daily Hyperbilirubinemia Transaminitis-cholestatic pattern GI consultation pending Questionable CAROLINE 250 cc NS bolus administered Macrocytosis, no anemia likely alcohol-induced Pending B12/folate Thiamine supplemented Dyslipidemia Atorvastatin 10 mg daily Plan discussed with patient, daughter over the phone in which all questions have been answered Goals of care discussed with the patient for more than 20 minutes, full code status Plan discussed with Dr. Graham Plan discussed with: Patient My Orders My Orders Orders - ROB CHRISTOPHER Procedure Category Date Status Time Vitamin B12 LAB 10/02/24 In Process 08:20 Vitamin D, 25-Hydroxy LAB 10/02/24 In Process 08:20 Nm Hida Scan NM 10/02/24 Logged 08:20 * Director Dental Services CONS 10/02/24 Transmitted Consult 12:05 ROB CHRISTOPHER Oct 02, 2024 12:56
--- NOTE | 2024-10-02 14:41 | DVHINCON2 ---
DATE OF CONSULTATION: 10/02/2024 HISTORY OF PRESENT ILLNESS: This patient is 88 years old, coming in with right upper quadrant pain, some nausea, no vomiting, no constipation or diarrhea. No hematemesis or melena. No bleeding per rectum. PAST MEDICAL HISTORY: AFib, CHF, diabetes, liver cirrhosis. PAST SURGICAL HISTORY: Pacemaker placement. PHYSICAL EXAMINATION: VITAL SIGNS: Currently, he is afebrile with stable signs. HEENT: With no evidence of pallor, cyanosis, or jaundice. NECK: Supple, nontender with no thyromegaly or lymphadenopathy. CHEST AND LUNGS: Clear. HEART: Within normal limits. ABDOMEN: Soft, tender right upper quadrant with minimal rebound. EXTREMITIES: Unremarkable. NEUROLOGIC: Intact. CLINICAL IMPRESSION: Rule out acute cholecystitis, rule out acute pancreatitis secondary to gallstones. PLAN: Will be to consider MRCP and also there is a possibility of an ERCP with a CBD stone causing obstruction of the CBD. Ultrasound is suggesting there is a possibility of ectasia of the common bile duct with a dilated CBD, ERCP is indicated. For that reason, he may have to be transferred to higher level of care. MD ARTUR Madrigal/SIM/DEVONTE TID: [id number] RECEIPT: [id number] cc: Michael Rehman MD
[2024-10-02] MEDS: PIPERACILLIN-TAZOB 3.375GM 100 ML IV SCH (14:54)
[2024-10-02] MEDS: RIVAROXABAN 20 MG TAB PO SCH (19:21)
[2024-10-02 19:33] VITALS: PULSE 60; RESP 17; O2SAT 95
[2024-10-02] MEDS: ATORVASTATIN 20 MG TAB PO SCH (21:58)
[2024-10-02 22:46] VITALS: BP 106/58; PULSE 60; RESP 16; TEMP 98.2; O2SAT 94
--- NOTE | 2024-10-03 16:16 | DVHDSRES ---
Discharge Summary Date of Admission Resident Creating Document: ROB CHRISTOPHER RESIDENT Oct 02, 2024 at 02:20 Date of Discharge: Oct 02, 2024 Labs/Diagnostic Data: Laboratory Results Test 10/02/24 22:12 10/02/24 05:38 10/02/24 05:19 10/01/24 19:04 POC Glucose 88 mg/dl (70-106) Urine Color Yellow (Yellow) Urine Clarity Clear (Clear) Urine pH 5.0 (5.0-9.0) Urine Specific [place] > 1.035 (1.001-1.035) Urine Protein Trace (Negative) Urine Ketones Negative (Negative) Urine Blood Negative /uL (Negative) Urine Nitrite Negative (Negative) Urine Bilirubin Negative (Negative) Urine Urobilinogen 2 mg/dL (Negative) Urine Leukocyte Esterase Negative /uL (Negative) Urine RBC 4 /hpf (0 - 3) Urine Microscopic WBC 1 /HPF (0-3) Urine Squamous Epithelial Cells Few /hpf (<5) Urine Bacteria Few /hpf (None Seen) Urine Hyaline Casts Mod /lpf (0 - 2) Urine Glucose 3+ mg/dL (Normal) White Blood Count 16.1 10^3/uL (4.4-10.8) Red Blood Count 4.23 10^6/uL (4.5-5.90) Hemoglobin 13.8 g/dL (13.5-17.5) Hematocrit 42.7 % (41.0-53.0) Mean Corpuscular Volume 100.9 fL (80.0-100.0) Mean Corpuscular Hemoglobin 32.6 pg (28.0-32.0) Mean Corpuscular Hemoglobin Concent 32.3 g/dL (32.0-36.0) Red Cell Distribution Width 14.8 % (11.8-14.3) Platelet Count 214 10^3/uL (140-450) Mean Platelet Volume 8.3 fL (6.9-10.8) Neutrophils (%) (Auto) 91.8 % (37.0-80.0) Lymphocytes (%) (Auto) 1.0 % (10.0-50.0) Monocytes (%) (Auto) 6.7 % (0.0-12.0) Eosinophils (%) (Auto) 0.1 % (0.0-7.0) Basophils (%) (Auto) 0.4 % (0.0-2.0) Neutrophils # (Auto) 14.8 10 ^3/uL (1.6-8.6) Lymphocytes # (Auto) 0.2 10 ^3/uL (0.4-5.4) Monocytes # (Auto) 1.1 10 ^3/uL (0-1.3) Eosinophils # (Auto) 0 10 ^3/uL (0-0.8) Basophils # (Auto) 0.1 10 ^3/uL (0-0.2) Nucleated Red Blood Cells 0.0 % Prothrombin Time 10.3 sec (9.3-11.8) Prothrombin Time INR 0.97 (0.9-1.15) Activated Partial Thromboplast Time 27.1 SEC (24.5-34.5) Sodium Level 139 mmol/L (136-145) Potassium Level 5.1 mmol/L (3.5-5.1) Chloride Level 103 mmol/L (98-107) Carbon Dioxide Level 29 mmol/L (20-31) Anion Gap 7 (5-15) Blood Urea Nitrogen 27 mg/dL (9-23) Creatinine 1.35 mg/dL (0.700-1.30) Glomerular Filtration Rate Calc 51 mL/min (>90) BUN/Creatinine Ratio 20.0 (10.0-20.0) Serum Glucose 124 mg/dL (74-106) Calcium Level 9.1 mg/dL (8.7-10.4) Magnesium Level 3.0 mg/dL (1.6-2.6) Total Bilirubin 2.3 mg/dL (0.2-1.0) Aspartate Amino Transferase (AST) 428 U/L (13-40) Alanine Aminotransferase (ALT) 301 U/L (7-40) Alkaline Phosphatase 118 U/L (46-116) B-Type Natriuretic Peptide 291.44 pg/mL (0-100) Total Protein 6.2 g/dL (5.7-8.2) Albumin 3.7 g/dL (3.2-4.8) Vitamin B12 Level 1370 pg/mL (211-911) Vitamin D 25-Hydroxy 33.3 ng/mL (30.0-100) Thyroid Stimulating Hormone (TSH) 0.94 uIU/mL (0.55-4.78) Lactic Acid Level 1.0 mmol/L (0.4-2.0) Lipase 492 U/L (12-53) Other Laboratory Tests 10/02/24 05:19 Brief Hx & Hospital Course: Mr. 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 Initially, he reports that the pain was crampy, intermittent but now it is continuous with think it is the worst pain he has ever had in his life. Associated features include nausea, no vomiting, denies fever or chills. Patient presented to the ER with low blood pressure 91/51 mmHg, pulse in 60s beats per minute During the hospitalization, ultrasound completed, showed CBD 13 mm. Hepatic steatosis include cholelithiasis, could not rule out choledocholithiasis. Labs showed AST greater than ALT, hyperbilirubinemia, lipase elevated at 4 9 2, WBC trended up from 7 to 16. Surgeon consulted, high likelihood that the patient has choledocholithiasis given the elevated lipase, recommended transferring the patient to higher level of care for ERCP stat. IV Zosyn was started 10/02. We continued patient's home medication Xarelto, we held patient's antihypertensives given low blood pressure. client services account manager was consulted for HL OC patient was accepted at [facility]. Patient was transferred to the higher level of care for further management. Consults/Reason for consult Surgeon consulted for cholecystectomy Operations or Procedures ORDERING PHYSICIAN: CRISTHIAN CEJA MD PROCEDURE(s): ABPLIV - CT AB PEL WITH IV CON ONLY REASON: abdomninal pain ORDER NUMBER(s): [id number], ACCESSION NUMBER(s): [id number] Exam: CT CT AB PEL WITH IV CON ONLY History: abdomninal pain Comparison Study: None TECHNIQUE: A digital change booth attendant image was obtained. During the uneventful, intravenous administration of contrast material, multislice data acquisition was obtained through the abdomen and pelvis. The data set was subsequently reconstructed into axial images. Images reviewed on a wrist examination is an examination of axial and multiplanar reformations using a variety of window levels and settings. RADIATION DOSE: DLP 1328.83 mGy.cm; CTDI vol 20.74 mGy. Findings: Lungs: The lung bases are clear. Heart: No cardiomegaly or pericardial effusion. Liver: Mild intrahepatic biliary ductal dilatation. Gallbladder: Cholelithiasis with a distended gallbladder. Dilated common bile duct measuring 1.6 cm at the pancreatic head. Spleen: Unremarkable Pancreas: Unremarkable Adrenals: Unremarkable Kidneys: Unremarkable GI tract: Moderate hiatal hernia. Diverticulosis without evidence of acute diverticulitis. : Unremarkable. Vasculature: Moderate aortoiliac atherosclerosis. Lymphadenopathy: Absent Peritoneum: No ascites Musculoskeletal: Unremarkable Soft tissues: Unremarkable Impression: 1. No acute abdominopelvic abnormalities. 2. Cholelithiasis with a distended gallbladder and dilated common bile duct. Correlate with an ultrasound or nuclear medicine hepatobiliary scan to further evaluate for acute cholecystitis. 3. Mild intrahepatic biliary ductal dilatation 4. Diverticulosis without evidence of acute diverticulitis. ATED BY: JANICE HARRISON DO DICTATED DATE/TIME: 10/01/242056 SIGNED BY: JANICE HARRISON DO SIGNED DATE/TIME: 10/01/242056 CC: ORDERING PHYSICIAN: JOJO CUELLAR NP PROCEDURE(s): GBUS - GALLBLADDER REASON: ? cholecystitis ORDER NUMBER(s): [id number], ACCESSION NUMBER(s): [id number] EXAM: US GALLBLADDER HISTORY: cholecystitis COMPARISON: CT scan of the abdomen and pelvis dated 10/01/2024. TECHNIQUE: Right upper quadrant ultrasound was performed. FINDINGS: Gallstones are identified in the dependent portion of the gallbladder, without gallbladder wall thickening or pericholecystic free fluid. The gallbladder is distended up to 12 cm length x 4 cm width. The patient was not tender to transducer pressure over the gallbladder. No intrahepatic biliary ductal dilatation or liver mass. The liver measures 16.9 cm longitudinal and is difficult to penetrate sonographically. There is hepatopetal portal venous color Doppler flow. The common duct measures 13 mm diameter. The pancreas,IVC, and abdominal aorta were not well visualized sonographically. The right kidney measures 10.3 cm in length and is normal in appearance. IMPRESSION: 1. Possible hepatic steatosis. 2. Cholelithiasis with gallbladder hydrops which may indicate acute cholecystitis. 3. Ectasia of the common bile duct measuring 13 mm, without sonographic evidence of choledocholithiasis. ATED BY: NAVEEN HUTSON MD DICTATED DATE/TIME: 10/02/24805 SIGNED BY: NAVEEN HUTSON MD SIGNED DATE/TIME: 10/02/24805 CC: Condition at Discharge: Higher Level of Care Final Diagnosis/Problems List Sepsis secondary to possible choledocholithiasis ? Cholangitis Acute pancreatitis Acute cholecystitis Hypotension secondary to above Acute on chronic CHF exacerbation Paroxysmal atrial fibrillation-rate controlled Hyperbilirubinemia Transaminitis-cholestatic pattern CAROLINE, likely vasomotor induced Macrocytosis, no anemia likely alcohol-induced Dyslipidemia Discharge Disposition: Acute Care Facility Discharge Instruct/Medications Activity: Light activity Follow Up/Referral: Follow up per higher level of care Discharge Statement: "Patient was advised to return to the ER or call 911 if any headaches, dizziness, shortness of breath, chest pain, abdominal pain, bleeding, fevers, or worsening of medical condition. Patient was counseled about treatment plan, medications, possible side effects, patientverbalized understanding. All questions were answered to the best of my ability. This discharge took greater then 30 minutes in planning, reviewing documentation, counseling the patient, and discussing with other team members." ASSESSMENT ASSESSMENT Assessment ROB CHRISTOPHER RESIDENT Oct 03, 2024 16:16
== END 2024-10-02 23:20 | disposition short-term general hospital (02) | DRG 871 ==
LOC: EDBD 18:34 → EDUNIT# 18:34 → ER 18:34 → OVERFLOW 10-02 02:20
PROVIDERS: ADMIT Nurse Practitioner Family; ATTEND Nurse Practitioner Family
DX: A41.9 Sepsis, unspecified organism (principal); K85.90 Acute pancreatitis without necrosis or infection, unspecified; N17.0 Acute kidney failure with tubular necrosis; K80.62 Calculus of gallbladder and bile duct with acute cholecystitis without obstruction; K74.60 Unspecified cirrhosis of liver; E78.5 Hyperlipidemia, unspecified; E80.6 Other disorders of bilirubin metabolism; I95.9 Hypotension, unspecified; D75.89 Other specified diseases of blood and blood-forming organs; K59.00 Constipation, unspecified; K82.8 Other specified diseases of gallbladder; E11.9 Type 2 diabetes mellitus without complications; R74.01 Elevation of levels of liver transaminase levels; F10.90 Alcohol use, unspecified, uncomplicated; I48.0 Paroxysmal atrial fibrillation; I50.9 Heart failure, unspecified; Z95.0 Presence of cardiac pacemaker; Z87.11 Personal history of peptic ulcer disease; Z79.82 Long term (current) use of aspirin; Z79.899 Other long term (current) drug therapy; Y90.9 Presence of alcohol in blood, level not specified
CPT/HCPCS: 36415; 71045; 74177; 76705; 80053; 81001; 82306; 82607; 82962; 83605; 83690; 83735; 83880; 84443; 85025; 85610; 85730; 87040; 87077; 87186; 96361; 96365; 96366; 96367; 96375; 99291; G0378; J1815; J2405; J2470; J2543; J3490